=== PATIENT | male | born 1990 | race Caucasian/White ===

== ENCOUNTER 2018-11-17 14:07 | Emergency (ER) | payer MEDICAID, OTHER ==
[~2018-11-17] VITALS: Wt 73.0 kg
[2018-11-17 15:02] VITALS: BP 122/58; PULSE 92; RESP 16
--- NOTE | 2018-11-17 23:43 | ERD ---
ER Documentation Chief Complaint Chief Complaint L index finger sutures to be removed: placed 12d ago HPI Patient is a 28-year-old male presents the ER for concerns of left index finger suture removal. Patient states sutures were placed 12 days ago at that facility. Patient reports having [address] Patient states that the sutures are fallen out already. Patient some stiffness when bending at the DIP joint. Patient denies any fevers, chills, redness, swelling, bleeding or discharge. Patient is up-to-date with tetanus vaccine. ROS All systems reviewed and are negative except as per history of present illness. Allergies Allergies: Coded Allergies: acetaminophen (Verified Allergy, Unknown, 11/17/18) PMhx/Soc Medical and Surgical Hx: pt denies Medical Hx, pt denies Surgical Hx History of Surgery: No Anesthesia Reaction: No Hx Neurological Disorder: No Hx Respiratory Disorders: No Hx Cardiac Disorders: No Hx Psychiatric Problems: No Hx Miscellaneous Medical Probl: No Hx Alcohol Use: No Hx Substance Use: No Hx Tobacco Use: No Smoking Status: Never smoker FmHx Family History: No diabetes, No coronary disease, No other Physical Exam Vitals Vital Signs Date Temp Pulse Resp B/P (MAP) Pulse Ox O2 O2 Flow FiO2 Time Delivery Rate 11/17/18 99.0 92 16 122/58 99 15:02 (79) Physical Exam GENERAL: Well-developed, well-nourished male. Appears in no acute distress. HEAD: Normocephalic, atraumatic. EYES: Pupils are equally reactive bilaterally. EOMs grossly intact. No conjunctival erythema. ENT: Moist mucous membranes. No uvula deviation. No kissing tonsils. NECK: Supple. No meningismus. Normal range of motion of the neck. LUNG: No respiratory distress EXTREMITIES: Equal pulses bilaterally. No peripheral clubbing, cyanosis or edema. No unilateral leg swelling. NEUROLOGIC: Alert and oriented. Moving all four extremities without any difficulty. Normal speech. Steady gait. SKIN: Healing laceration noted to the left index finger. No wound dehiscence, no active bleeding, no discharge. Decreased bending at DIP joint noted. Normal range of motion of PIP joint and MCP joint. Normal pulse. Normal cap refill. Procedures/MDM Suture Removal by me: 7 Sutures removed with tweezers and scissors without incident. Wound shows no evidence of infection, foreign body, neurologic injury, vascular injury, open joint. Patient was advised to follow-up with a hand specialist for further management of his difficulty bending at his DIP joint. Unable to definitively rule out any tendon or ligament injuries. Referral information provided. Departure Diagnosis: Primary Impression: Encounter for removal of sutures Condition: Stable Patient Instructions: Suture Removal, No Complication Referrals: [facility] Additional Instructions: Llame al doctor/ doctor de alexander ARVINDANA y carolina edilson LINDA PARA DENTRO DE 1-2 AZUL.Dgale a la secretaria que nosotros le instruimos hacer esta linda.Avise o llame si petersen condicin se empeora antes de la linda. Regresa aqui si peor o no mejor. MARGARITA YOU PA-C Nov 17, 2018 23:43
== END 2018-11-17 20:11 | disposition home or self-care (01) ==
LOC: FTE 14:07
DX: Z48.02 Encounter for removal of sutures (principal)
CPT/HCPCS: 99281